=== PATIENT | female | born 1950 | race Hispanic/Latino ===

== ENCOUNTER 2023-12-29 15:19 | Outpatient (CLI) | payer MEDICARE | END 2023-12-29 15:20 | disposition home or self-care (01) | LOC: BURRAD 15:19 | PROVIDERS: ATTEND Family Medicine | DX: M79.672 Pain in left foot (principal); M25.572 Pain in left ankle and joints of left foot; S92.345A Nondisplaced fracture of fourth metatarsal bone, left foot, initial encounter for closed fracture; S92.355A Nondisplaced fracture of fifth metatarsal bone, left foot, initial encounter for closed fracture ==